=== PATIENT | female | born 1940 | race Hispanic/Latino ===

== ENCOUNTER 2021-09-01 21:48 | Inpatient (IN) | payer OTHER, MEDICARE ==
[~2021-09-01] VITALS: Ht 152.4 cm; Wt 71.3 kg
[2021-09-01 22:45] VITALS: BP 142/71
[2021-09-01] MEDS ORDERED: CHOL2000 PO (22:58)
[2021-09-01] MEDS ORDERED: AMLO-257 PO (22:58)
[2021-09-01] MEDS ORDERED: SIMV-43 PO (22:58)
[2021-09-01] MEDS ORDERED: LEVO100 PO (22:58)
[2021-09-02] MEDS ORDERED: MORPHINE 2 MG SYG IV PRN
[2021-09-02] MEDS ORDERED: LACTULOSE 20 GM/30 ML UDCUP PO PRN
[2021-09-02] MEDS ORDERED: ONDANSETRON 4MG INJ IV PRN
[2021-09-02] MEDS ORDERED: ACETAMINOPHEN 325 MG TAB PO PRN
[2021-09-02] MEDS: 0.9%NACL 1000ML 1,000 ML IV SCH ×2 (00:13→20:00)
[2021-09-02 04:19] LABS: BASOPHILS % (AUTO) 0.3 % (0.0-5.0); EOSINOPHILS % (AUTO) 3.3 % (0.0-8.0); LYMPHOCYTES % (AUTO) 13.8 % (21.0-51.0); MEAN CORPUSCULAR HEMOGLOBIN 26.8 pg (27.0-33.0); MEAN CORPUSCULAR HGB CONC 34.1 g/dL (32.0-36.0); MEAN CORPUSCULAR VOLUME 78.8 fL (79-99); MONOCYTES % (AUTO) 6.6 % (3.0-13.0); NEUTROPHILS % (AUTO) 75.3 % (40.0-77.0); PLATELET COUNT (AUTO) 289 K/uL (130-400); RED BLOOD CELL COUNT(AUTO) 4.06 MIL/uL (4.00-5.50); RED CELL DISTRIBUTION WIDTH 15.5 % (11.0-15.5); WHITE BLOOD COUNT (AUTO) 7.6 K/uL (4.8-10.8)
[2021-09-02] MEDS: ZOSYN 3.375GM+NS 50ML 50 ML IV SCH ×3 (04:22→20:12)
[2021-09-02 04:24] VITALS: BP 103/60
[2021-09-02 04:29] LABS: INR 1.08 (0.85-1.15); PROTHROMBIN TIME 11.7 SEC (9.6-11.6)
[2021-09-02 04:30] LABS: PARTIAL THROMBOPLASTIN TIME 31.7 SEC (26.3-35.5)
[2021-09-02 04:35] LABS: BILIRUBIN,TOTAL 0.6 mg/dL (0.2-1.0); CREATININE 0.5 mg/dL (0.5-1.5); POTASSIUM 3.3 mmol/L (3.5-5.1); TOTAL PROTEIN, SERUM 6.1 g/dL (6.0-8.3)
[2021-09-02] MEDS: INSULIN HUMULIN R 100 UNIT/ML 3ML SQ SCH ×4 (05:14→20:59)
[2021-09-02 05:25] LABS: ERYTHROCYTE SEDIMENTATION RATE 81 MM/HR (0-30)
[2021-09-02 08:27] VITALS: BP 115/56
[2021-09-02] MEDS: FAMOTIDINE 20MG VIAL IV SCH ×2 (09:02→20:12)
[2021-09-02 11:14] VITALS: BP 135/72
[2021-09-02] MEDS ORDERED: FENTANYL CITRATE PF 50 MCG/1 ML 2ML VIAL ONE (11:55)
[2021-09-02] MEDS ORDERED: MIDAZOLAM HCL 1 MG/ML 2ML VIAL ONE (11:56)
[2021-09-02 15:44] VITALS: BP 133/69
[2021-09-02] MEDS ORDERED: LIDOCAINE HCL 400MG/20ML VIAL ONE (16:28)
[2021-09-02] MEDS: ACETAMINOPHEN 325 MG TAB PO PRN (20:13)
[2021-09-02 20:18] VITALS: BP 136/69
[2021-09-02 23:29] VITALS: BP 132/63
[2021-09-03] MEDS: ZOSYN 3.375GM+NS 50ML 50 ML IV SCH ×3 (04:31→20:27)
[2021-09-03] MEDS: 0.9%NACL 1000ML 1,000 ML IV SCH ×3 (04:31→22:37)
[2021-09-03 04:41] VITALS: BP 131/68
[2021-09-03] MEDS: INSULIN HUMULIN R 100 UNIT/ML 3ML SQ SCH ×4 (05:47→20:28)
[2021-09-03 07:01] LABS: BASOPHILS % (AUTO) 0.2 % (0.0-5.0); EOSINOPHILS % (AUTO) 2.4 % (0.0-8.0); HEMATOCRIT 33.8 % (36-48); LYMPHOCYTES % (AUTO) 11.2 % (21.0-51.0); MEAN CORPUSCULAR HEMOGLOBIN 26.4 pg (27.0-33.0); MEAN CORPUSCULAR HGB CONC 32.2 g/dL (32.0-36.0); MEAN CORPUSCULAR VOLUME 81.8 fL (79-99); MONOCYTES % (AUTO) 6.3 % (3.0-13.0); NEUTROPHILS % (AUTO) 79.5 % (40.0-77.0); PLATELET COUNT (AUTO) 306 K/uL (130-400); RED BLOOD CELL COUNT(AUTO) 4.13 MIL/uL (4.00-5.50); RED CELL DISTRIBUTION WIDTH 15.9 % (11.0-15.5); WHITE BLOOD COUNT (AUTO) 8.2 K/uL (4.8-10.8)
[2021-09-03 07:28] LABS: CREATININE 0.5 mg/dL (0.5-1.5); POTASSIUM 3.9 mmol/L (3.5-5.1)
[2021-09-03 08:17] VITALS: BP 123/68
[2021-09-03] MEDS: FAMOTIDINE 20MG VIAL IV SCH ×2 (09:06→20:27)
[2021-09-03 11:12] VITALS: BP 111/66
[2021-09-03 16:22] VITALS: BP 129/72
[2021-09-03] MEDS: SIMVASTATIN 20 MG TABLET PO SCH (20:27)
[2021-09-03 20:29] VITALS: BP 129/74
[2021-09-03] MEDS: ACETAMINOPHEN 325 MG TAB PO PRN (20:29)
[2021-09-03 23:46] VITALS: BP 115/67
[2021-09-04 03:51] VITALS: BP 124/72
[2021-09-04] MEDS: ZOSYN 3.375GM+NS 50ML 50 ML IV SCH ×3 (04:20→21:31)
[2021-09-04] MEDS: INSULIN HUMULIN R 100 UNIT/ML 3ML SQ SCH ×4 (05:55→21:00)
[2021-09-04] MEDS: LEVOTHYROXINE 100 MCG TABLET PO SCH (06:02)
[2021-09-04 07:15] VITALS: BP 116/61
[2021-09-04] MEDS: FAMOTIDINE 20MG VIAL IV SCH ×2 (08:22→21:31)
[2021-09-04] MEDS: AMLODIPINE 5 MG TAB PO SCH (08:22)
[2021-09-04 11:00] VITALS: BP 131/77
[2021-09-04 15:15] VITALS: BP 113/67
[2021-09-04 19:40] VITALS: BP 112/75
[2021-09-04] MEDS: SIMVASTATIN 20 MG TABLET PO SCH (21:31)
[2021-09-04 23:37] VITALS: BP 115/71
[2021-09-05 04:00] VITALS: BP 118/76
[2021-09-05 04:59] LABS: HEMATOCRIT 32.8 % (36-48); MEAN CORPUSCULAR HEMOGLOBIN 27.4 pg (27.0-33.0); MEAN CORPUSCULAR HGB CONC 33.5 g/dL (32.0-36.0); MEAN CORPUSCULAR VOLUME 81.6 fL (79-99); RED BLOOD CELL COUNT(AUTO) 4.02 MIL/uL (4.00-5.50); RED CELL DISTRIBUTION WIDTH 15.5 % (11.0-15.5); WHITE BLOOD COUNT (AUTO) 6.9 K/uL (4.8-10.8)
[2021-09-05 05:09] LABS: CREATININE 0.6 mg/dL (0.5-1.5); POTASSIUM 3.8 mmol/L (3.5-5.1)
[2021-09-05] MEDS: ZOSYN 3.375GM+NS 50ML 50 ML IV SCH ×4 (05:44→21:58)
[2021-09-05] MEDS: LEVOTHYROXINE 100 MCG TABLET PO SCH (05:44)
[2021-09-05] MEDS: INSULIN HUMULIN R 100 UNIT/ML 3ML SQ SCH ×3 (07:30→21:00)
[2021-09-05 08:00] VITALS: BP 105/65
[2021-09-05] MEDS: CHOLECALCIFEROL 50 MCG PO SCH (09:00)
[2021-09-05] MEDS: AMLODIPINE 5 MG TAB PO SCH (10:38)
[2021-09-05] MEDS: FAMOTIDINE 20MG VIAL IV SCH ×2 (10:39→21:58)
[2021-09-05 12:00] VITALS: BP 121/68
[2021-09-05 16:00] VITALS: BP 118/68
[2021-09-05 20:06] VITALS: BP 131/68
[2021-09-05] MEDS: SIMVASTATIN 20 MG TABLET PO SCH (21:58)
[2021-09-06] VITALS: BP 111/64
[2021-09-06 04:55] LABS: BASOPHILS % (AUTO) 0.4 % (0.0-5.0); EOSINOPHILS % (AUTO) 2.7 % (0.0-8.0); HEMATOCRIT 33.9 % (36-48); LYMPHOCYTES % (AUTO) 14.1 % (21.0-51.0); MEAN CORPUSCULAR HEMOGLOBIN 25.8 pg (27.0-33.0); MEAN CORPUSCULAR HGB CONC 31.6 g/dL (32.0-36.0); MEAN CORPUSCULAR VOLUME 81.9 fL (79-99); MONOCYTES % (AUTO) 6.1 % (3.0-13.0); NEUTROPHILS % (AUTO) 76.3 % (40.0-77.0); PLATELET COUNT (AUTO) 364 K/uL (130-400); RED BLOOD CELL COUNT(AUTO) 4.14 MIL/uL (4.00-5.50); RED CELL DISTRIBUTION WIDTH 15.4 % (11.0-15.5)
[2021-09-06 04:59] VITALS: BP 118/69
[2021-09-06 05:09] LABS: ALBUMIN 1.8 g/dL (3.5-5.0); BILIRUBIN,TOTAL 0.5 mg/dL (0.2-1.0); CREATININE 0.5 mg/dL (0.5-1.5); POTASSIUM 3.6 mmol/L (3.5-5.1); TOTAL PROTEIN, SERUM 6.2 g/dL (6.0-8.3)
[2021-09-06] MEDS: INSULIN HUMULIN R 100 UNIT/ML 3ML SQ SCH (05:36)
[2021-09-06] MEDS: ZOSYN 3.375GM+NS 50ML 50 ML IV SCH (05:51)
[2021-09-06] MEDS: LEVOTHYROXINE 100 MCG TABLET PO SCH (05:51)
[2021-09-06] MEDS: AMLODIPINE 5 MG TAB PO SCH (08:14)
[2021-09-06] MEDS: FAMOTIDINE 20MG VIAL IV SCH (08:14)
[2021-09-06 08:57] VITALS: BP 110/58
[2021-09-06] MEDS: CHOLECALCIFEROL 50 MCG PO SCH (09:00)
== END 2021-09-06 13:47 | disposition short-term general hospital (02) | DRG 478 ==
LOC: 2AH 21:48 → OBSVTOIN 21:48 → INTOOBSV 21:48 → UNDOADMIN 21:48 → 4BH 21:48
PROVIDERS: ADMIT Internal Medicine; ATTEND Internal Medicine
PROC: 0QB03ZX Excision of Lumbar Vertebra, Percutaneous Approach, Diagnostic (ICD-10-PCS; principal; 2021-09-02)
DX: M46.46 Discitis, unspecified, lumbar region (principal); L03.114 Cellulitis of left upper limb; I10 Essential (primary) hypertension; E03.9 Hypothyroidism, unspecified; E78.5 Hyperlipidemia, unspecified; E11.9 Type 2 diabetes mellitus without complications; Z90.49 Acquired absence of other specified parts of digestive tract; R54 Age-related physical debility; R79.89 Other specified abnormal findings of blood chemistry; M47.816 Spondylosis without myelopathy or radiculopathy, lumbar region
CPT/HCPCS: 36415; 38222; 77012; 80048; 80053; 82948; 85025; 85027; 85610; 85651; 85730; 87070; 87076; 87101; 87116; 87206; 97039; 99152; 99153; G0378; J2250; J2543; J3010; J3490; J7030